=== PATIENT | male | born 1990 | race American Indian/Alaskan Native ===

== ENCOUNTER 2018-11-28 20:47 | Emergency (ER) | payer OTHER ==
--- NOTE | 2018-11-28 21:23 | EDM.PDOC ---
ED HPI GENERAL MEDICAL PROBLEM - General Chief Complaint: Upper Extremity Injury/Pain Stated Complaint: PT HURT RT MIDDLE FINGER Time Seen by Provider: 11/28/18 21:23 Source of Information: Reports: Patient History Limitations: Reports: No Limitations - History of Present Illness INITIAL COMMENTS - FREE TEXT/NARRATIVE: HISTORY AND PHYSICAL: History of present illness: Patient is a 28-year-old male presents to the ED with complaint of stainless steel ring stuck on right middle finger x 1 day. No other complaints at this time. Review of systems: As per history of present illness and below otherwise all systems reviewed and negative. Past medical history: As per history of present illness and as reviewed below otherwise noncontributory. Surgical history: As per history of present illness and as reviewed below otherwise noncontributory. Social history: No reported history of drug or alcohol abuse. Family history: As per history of present illness and as reviewed below otherwise noncontributory. Physical exam: General: Patient sitting comfortably in no acute distress and nontoxic appearing HEENT: Atraumatic, normocephalic, pupils reactive, negative for conjunctival pallor or scleral icterus, mucous membranes moist, throat clear, neck supple, nontender, trachea midline. No meningeal signs. Lungs: Clear to auscultation, breath sounds equal bilaterally, chest nontender. Heart: S1S2, regular, negative for clicks, rubs, or overt murmur. Abdomen: Soft, nondistended, nontender. Negative for masses or hepatosplenomegaly. Negative for costovertebral tenderness. No rigidity, rebound , guarding. Pelvis: Stable nontender. Genitourinary: Deferred. Rectal: Deferred. Extremities: Ring on right middle finger with mild distal swelling. Atraumatic, negative for cords or calf pain. Neurovascular unremarkable. Neuro: Awake, alert, oriented. Cranial nerves II through XII unremarkable. Cerebellum unremarkable. Motor and sensory unremarkable throughout. Exam nonfocal. Notes: Unable to remove ring using cutter. Dr. Horne successfully removed ring using fishing line and lubricant. Patient tolerated well. Diagnostics: none Therapeutics: [] Prescriptions: Impression: Ring on finger Plan: Ice, elevate, and tylenol and motrin as needed Follow up with primary care provider Return to ED as needed as discussed Definitive disposition and diagnosis as appropriate pending reevaluation and review of above. right middle finger Pain Score (Numeric/FACES): 1 - Related Data Allergies Allergy/AdvReac Type Severity Reaction Status Date / Time No Known Allergies Allergy Verified 11/08/14 11:04 Home Meds: Home Meds . [No Known Home Meds] 11/08/14 [History] Past Medical History - Past Health History Medical/Surgical History: Denies Medical/Surgical History Review of Systems - Review of Systems Review Of Systems: ROS reveals no pertinent complaints other than HPI. ED EXAM, GENERAL - Physical Exam Exam: See Below (see dictation) Course - Vital Signs Last Recorded V/S: Last Vital Signs Temp 96.8 F 11/28/18 20:56 Pulse 98 11/28/18 20:56 Resp 14 11/28/18 20:56 BP 134/70 11/28/18 20:56 Pulse Ox 96 11/28/18 20:56 Departure - Departure Time of Disposition: 21:23 Disposition: Home, Self-Care 01 Condition: Good Clinical Impression: Tight ring on finger - Discharge Information Instructions: Medical Screening Exam Forms: ED Department Discharge Additional Instructions: The following information is given to patients seen in the emergency department who are being discharged to home. This information is to outline your options for follow-up care. We provide all patients seen in our emergency department with a follow-up referral. The need for follow-up, as well as the timing and circumstances, are variable depending upon the specifics of your emergency department visit. If you don't have a primary care physician on staff, we will provide you with a referral. We always advise you to contact your personal physician following an emergency department visit to inform them of the circumstance of the visit and for follow-up with them and/or the need for any referrals to a consulting specialist. The emergency department will also refer you to a specialist when appropriate. This referral assures that you have the opportunity for follow-up care with a specialist. All of these measure are taken in an effort to provide you with optimal care, which includes your follow-up. Under all circumstances we always encourage you to contact your private physician who remains a resource for coordinating your care. When calling for follow-up care, please make the office aware that this follow-up is from your recent emergency room visit. If for any reason you are refused follow-up, please contact the [facility] Emergency Department at and asked to speak to the emergency department charge nurse. [facility] [address] [place] [address] [facility] [address] [place] [id number] Ice, elevate, and tylenol and motrin as needed Follow up with primary care provider Return to ED as needed as discussed
[2018-11-28 21:42] VITALS: BP 134/70
== END 2018-11-28 21:37 | disposition home or self-care (01) ==
LOC: MW.ED 20:47
DX: S60.442A External constriction of right middle finger, initial encounter (principal); W49.04XA Ring or other jewelry causing external constriction, initial encounter
CPT/HCPCS: 99283

== ENCOUNTER 2019-05-29 14:37 | Emergency (ER) | payer OTHER ==
--- NOTE | 2019-05-29 15:38 | CT ---
CT face Multiple axial sections were obtained from inferior to the mandibles superiorly through the orbits. Intravenous contrast was not utilized. Findings: Submandibular salivary glands and parotid salivary glands appear within normal limits. Paranasal sinuses are clear with nothing acute. Moderate mucosal thickening is seen within the left mastoid sinus. Right and left globes are symmetric. No retrobulbar abnormality is seen. Diffuse soft tissue swelling is noted within the right cheek. Right-sided nasal bone fracture is noted. Very minimal displacement is seen. No additional facial bone fracture is identified. Impression: 1. Moderate mucosal thickening of left mastoid sinus. Please correlate if patient has any symptoms of infection for this to represent mastoiditis. 2. Diffuse soft tissue swelling within the right cheek. 3. Slightly displaced right-sided nasal bone fracture. 4. No additional abnormality is seen. Diagnostic code #3 This report was dictated in Mountain Standard Time
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
[2019-05-29 16:14] VITALS: BP 128/96; PULSE 98
== END 2019-05-29 16:14 ==
LOC: MW.ED 14:37
DX: S02.2XXA Fracture of nasal bones, initial encounter for closed fracture (principal); F17.210 Nicotine dependence, cigarettes, uncomplicated; X58.XXXA Exposure to other specified factors, initial encounter
CPT/HCPCS: 70486; 70486-26; 99283; 99283-25